=== PATIENT | female | born 1990 | race African-American/Black ===

== ENCOUNTER 2017-02-23 17:01 | Emergency (ER) | payer OTHER ==
[~2017-02-23] VITALS: Ht 162.6 cm; Wt 81.6 kg
[2017-02-23] MEDS ORDERED: TYLE325T5 PO (17:21)
[2017-02-23] MEDS ORDERED: FLUC10TA PO (17:21)
[2017-02-23] MEDS ORDERED: IBUP-1114 PO (17:21)
[2017-02-23 18:09] LABS: BASO % 0.4 % (0.0-1.0); EOS # 0.1 K/mm3 (0.0-0.50); EOS % 0.6 % (0.0-3.0); LARGE UNSTAINED CELL # 0.1 K/mm3 (0.0-0.4); LARGE UNSTAINED CELL % 0.8 % (0.0-4.0); LYMPH # 2.3 K/mm3 (1.5-6.5); LYMPH % 19.9 % (24.0-44.0); MEAN CORPUSCULAR HEMOGLOBIN 29.1 pg (27.0-33.0); MEAN CORPUSCULAR HGB CONC 33.9 g/dl (32.0-36.5); MEAN CORPUSCULAR VOLUME 85.8 fl (80.0-96.0); MONO # 0.3 K/mm3 (0.0-0.8); MONO % 2.9 % (0.0-5.0); NEUTROPHILS # 8.5 K/mm3 (1.8-7.7); NEUTROPHILS % 75.3 % (36.0-66.0); PLATELET COUNT, AUTOMATED 354 k/mm3 (150-450); RED CELL DISTRIBUTION WIDTH 13.5 % (11.5-14.5); WHITE BLOOD COUNT 11.3 K/mm3 (4.0-10.0)
[2017-02-23 18:36] LABS: CONTROL LINE HCG INT CTR LINE PRESENT
[2017-02-23 18:43] LABS: ALBUMIN 3.9 GM/DL (3.2-5.2); ALBUMIN/GLOBULIN RATIO 0.93 (1.00-1.93); ALKALINE PHOSPHATASE 107 U/L (45-117); ALT/SGPT 22 U/L (12-78); ANION GAP 6 MEQ/L (8-16); AST/SGOT 15 U/L (15-37); BILIRUBIN,DIRECT 0.1 MG/DL (0.0-0.2); BILIRUBIN,TOTAL 0.5 MG/DL (0.2-1.0); BLOOD UREA NITROGEN 8 MG/DL (7-18); CALCIUM LEVEL 9.6 MG/DL (8.5-10.1); CARBON DIOXIDE LEVEL 28 MEQ/L (21-32); CHLORIDE LEVEL 104 MEQ/L (98-107); CREATININE FOR GFR 0.73 MG/DL (0.55-1.02); GLOMERULAR FILTRATION RATE > 60.0 (>60); GLUCOSE, FASTING 91 MG/DL (70-105); POTASSIUM SERUM 3.9 MEQ/L (3.5-5.1); SODIUM LEVEL 138 MEQ/L (136-145); TOTAL PROTEIN 8.1 GM/DL (6.4-8.2)
--- NOTE | 2017-02-23 19:00 | REPUSA ---
CLINICAL HISTORY: Pelvic pain. TECHNIQUE: Realtime sonographic images were obtained in multiple projections. FINDINGS: The uterus is anteverted measuring 9.1 x 4.5 x 5.5 cm. The endometrial echo pattern is within normal limits measuring 9.6 mm. There is free fluid in the posterior cul-de-sac. The right ovary measures 2.8 x 1.9 x 1.6 cm and the left ovary measures 3.2 x 2.5 x 2.7 cm. There is a hemorrhagic left ovarian cyst measuring 1.8 x 1.7 x 1.9 cm. There is no evidence for abnormal vascularity. IMPRESSION: 1. Hemorrhagic left ovarian cyst. 2. Free fluid in the posterior cul-de-sac. Thank you for your kind referral of this patient. We appreciate the opportunity to participate in thi s patient's care.
[2017-02-23] MEDS ORDERED: PHENAZOPYRIDINE 100 MG TAB PO ONE (19:15)
[2017-02-23] MEDS ORDERED: CIPROFLOXACIN 500 MG TAB PO ONE (19:15)
[2017-02-23] MEDS ORDERED: CIPR500T89 PO (19:21)
[2017-02-23] MEDS ORDERED: PYRI200T5 PO (19:21)
[2017-02-23 19:41] VITALS: BP 142/70
== END 2017-02-23 19:42 | disposition home or self-care (01) ==
LOC: M ED 19:17
DX: N30.00 Acute cystitis without hematuria (principal); N83.292 Other ovarian cyst, left side; Z91.040 Latex allergy status

== ENCOUNTER 2017-04-25 19:59 | Emergency (ER) | payer OTHER ==
[~2017-04-25] VITALS: Ht 162.6 cm; Wt 95.0 kg
[~2017-04-25 19:59] MED LIST: CIPR-249 PO; FLUC10TA PO; IBUP-1114 PO; PYRI1TAB5 PO; TYLE325T5 PO
[2017-04-25 20:01] VITALS: BP 122/63
[2017-04-25] MEDS ORDERED: AMOX500C PO (21:05)
[2017-04-25] MEDS ORDERED: ACETAMINOPHEN TAB 650MG DOSE (2X325MG) PO ONE (21:15)
[2017-04-25] MEDS ORDERED: AMOXICILLIN 500 MG CAP PO ONE (21:15)
== END 2017-04-25 21:20 | disposition home or self-care (01) ==
LOC: M ED 21:19
DX: H66.001 Acute suppurative otitis media without spontaneous rupture of ear drum, right ear (principal); M54.2 Cervicalgia

== ENCOUNTER 2017-05-05 11:59 | Emergency (ER) | payer OTHER ==
[~2017-05-05] VITALS: Ht 162.6 cm; Wt 93.3 kg
[~2017-05-05 11:59] MED LIST changes: +AMOX500C PO
[2017-05-05 12:54] LABS: BASO % 0.4 % (0.0-1.0); EOS # 0.1 K/mm3 (0.0-0.50); EOS % 0.7 % (0.0-3.0); LARGE UNSTAINED CELL # 0.1 K/mm3 (0.0-0.4); LARGE UNSTAINED CELL % 0.9 % (0.0-4.0); LYMPH # 2.5 K/mm3 (1.5-6.5); LYMPH % 23.6 % (24.0-44.0); MEAN CORPUSCULAR HEMOGLOBIN 29.5 pg (27.0-33.0); MEAN CORPUSCULAR VOLUME 86.9 fl (80.0-96.0); MONO # 0.3 K/mm3 (0.0-0.8); MONO % 2.9 % (0.0-5.0); NEUTROPHILS # 7.4 K/mm3 (1.8-7.7); NEUTROPHILS % 71.5 % (36.0-66.0); PLATELET COUNT, AUTOMATED 312 k/mm3 (150-450); RED CELL DISTRIBUTION WIDTH 13.1 % (11.5-14.5); WHITE BLOOD COUNT 10.4 K/mm3 (4.0-10.0)
[2017-05-05 13:41] VITALS: BP 111/74
== END 2017-05-05 13:42 | disposition home or self-care (01) ==
LOC: M ED 11:59
DX: O20.0 Threatened abortion (principal); O99.211 Obesity complicating pregnancy, first trimester; O99.331 Smoking (tobacco) complicating pregnancy, first trimester; F17.210 Nicotine dependence, cigarettes, uncomplicated; Z91.040 Latex allergy status; Z3A.00 Weeks of gestation of pregnancy not specified

== ENCOUNTER 2017-06-07 14:44 | Emergency (ER) | payer OTHER ==
[~2017-06-07] VITALS: Ht 162.6 cm; Wt 94.5 kg
[2017-06-07] MEDS ORDERED: ACET50TA PO (15:00)
[2017-06-07 17:06] VITALS: BP 148/86
== END 2017-06-07 17:07 | disposition home or self-care (01) ==
LOC: M ED 14:44
DX: R51 Headache (principal); Z32.01 Encounter for pregnancy test, result positive; Z91.040 Latex allergy status

== ENCOUNTER 2017-09-10 17:39 | Emergency (ER) | payer OTHER ==
[~2017-09-10] VITALS: Ht 162.6 cm; Wt 91.8 kg
[~2017-09-10 17:39] MED LIST changes: +ACET50TA PO
[2017-09-10 17:40] VITALS: BP 141/76
[2017-09-10] MEDS ORDERED: AMOXICILLIN 500 MG CAP PO ONE (18:15)
[2017-09-10] MEDS ORDERED: AMOX875T PO (18:15)
== END 2017-09-10 18:26 | disposition home or self-care (01) ==
LOC: M ED 17:39
DX: H66.012 Acute suppurative otitis media with spontaneous rupture of ear drum, left ear (principal)

== ENCOUNTER 2017-12-18 20:36 | Emergency (ER) | payer OTHER ==
[2017-12-18] MEDS: NS 1,000 ML IV (23:01)
[2017-12-18 23:04] LABS: HEMATOCRIT 36.8 % (36.0-47.0); HEMOGLOBIN 12.5 g/dl (12.0-16.0); MEAN CORPUSCULAR HEMOGLOBIN 28.6 pg (27.0-33.0); MEAN CORPUSCULAR VOLUME 84.2 fl (80.0-96.0); PLATELET COUNT, AUTOMATED 278 10^3/uL (150-450); RED BLOOD COUNT 4.37 10^6/uL (4.00-5.40); RED CELL DISTRIBUTION WIDTH 14.1 % (11.5-14.5); WHITE BLOOD COUNT 15.5 10^3/uL (4.0-10.0)
[2017-12-18] MEDS: ACETAMINOPHEN 325 MG TAB PO (23:05)
[2017-12-18 23:06] LABS: CONTROL LINE UCG INT CTR LINE PRESENT; URINE PREG TEST POSITIVE (NEGATIVE)
[2017-12-18 23:40] LABS: HCG, SERUM QUANTITATIVE 2642 MIU/ML
[2017-12-19 00:37] LABS: KETONE, URINE AUTO RFX NEGATIVE (NEGATIVE); LEUKOCYTE ESTERASE UR AUTO RFX NEGATIVE (NEGATIVE); MUCUS, URINE RFX SMALL (NEGATIVE); NITRITE, URINE AUTO RFX NEGATIVE (NEGATIVE); RBC, URINE AUTO RFX 1 /HPF (0-3); SPECIFIC GRAVITY UR AUTO RFX 1.021 (1.002-1.035); SQUAM EPITHELIAL CELL UR AURFX 2 /HPF (0-6); WBC, URINE AUTO RFX 0 /HPF (0-3)
== END 2017-12-19 01:31 | disposition home or self-care (01) ==
LOC: M ED 12-19 01:31
DX: O26.891 Other specified pregnancy related conditions, first trimester (principal); R10.2 Pelvic and perineal pain; Z3A.01 Less than 8 weeks gestation of pregnancy
CPT/HCPCS: 76801

== ENCOUNTER 2017-12-28 04:27 | Emergency (ER) | payer OTHER ==
[2017-12-28] MEDS: ONDANSETRON 4MG/2ML VIAL (J2405) IV (06:15)
[2017-12-28] MEDS: NS 1,000 ML IV (06:15)
[2017-12-28] MEDS: ACETAMINOPHEN 325 MG TAB PO (07:15)
[2017-12-28 07:17] LABS: KETONE, URINE AUTO RFX NEGATIVE (NEGATIVE); LEUKOCYTE ESTERASE UR AUTO RFX NEGATIVE (NEGATIVE); MUCUS, URINE RFX SMALL (NEGATIVE); NITRITE, URINE AUTO RFX NEGATIVE (NEGATIVE); RBC, URINE AUTO RFX 1 /HPF (0-3); SPECIFIC GRAVITY UR AUTO RFX 1.017 (1.002-1.035); SQUAM EPITHELIAL CELL UR AURFX 2 /HPF (0-6); WBC, URINE AUTO RFX 0 /HPF (0-3)
[2017-12-28 07:53] LABS: HCG, SERUM QUANTITATIVE 28764 MIU/ML
== END 2017-12-28 08:11 | disposition home or self-care (01) ==
LOC: M ED 04:27
DX: O21.9 Vomiting of pregnancy, unspecified (principal); O99.89 Other specified diseases and conditions complicating pregnancy, childbirth and the puerperium; R51 Headache; Z3A.00 Weeks of gestation of pregnancy not specified; Z91.040 Latex allergy status
CPT/HCPCS: J2405

== ENCOUNTER 2018-02-06 10:12 | Emergency (ER) | payer OTHER ==
[2018-02-06] MEDS: diphenhydrAMINE INJ 50MG/ML VIAL (J1200) IV (11:41)
[2018-02-06] MEDS: METOCLOPRAMIDE INJ 10MG/2ML VIAL (J2765) IV (11:41)
[2018-02-06] MEDS: MORPHINE 4 MG/ML 1ML VIAL/SYRINGE (J2270) IV (11:41)
== END 2018-02-06 12:46 | disposition home or self-care (01) ==
LOC: M ED 10:12
DX: G43.909 Migraine, unspecified, not intractable, without status migrainosus (principal); Z91.040 Latex allergy status
CPT/HCPCS: J2270

== ENCOUNTER → 2018-02-09 | Outpatient (REF) | payer OTHER ==
[2018-02-09 22:03] LABS: CHLAMYDIA DNA AMPLIFICATION NEGATIVE (NEGATIVE); GC DNA AMPLIFICATION NEGATIVE (NEGATIVE)
== END ==
LOC: M SFHCLERA 18:18
DX: R30.0 Dysuria (principal)
CPT/HCPCS: 87086

== ENCOUNTER 2018-05-11 19:49 | Outpatient (CLI) | payer OTHER ==
[2018-05-11] MEDS: LR 1,000 ML IV (21:13)
[2018-05-11] MEDS: ACETAMINOPHEN 500 MG TAB PO (21:14)
[2018-05-11 21:17] LABS: HEMATOCRIT 35.6 % (36.0-47.0); HEMOGLOBIN 12.2 g/dl (12.0-15.5); MEAN CORPUSCULAR HEMOGLOBIN 29.8 pg (27.0-33.0); MEAN CORPUSCULAR HGB CONC 34.3 g/dl (32.0-36.5); PLATELET COUNT, AUTOMATED 252 10^3/uL (150-450); RED BLOOD COUNT 4.09 10^6/uL (4.00-5.40); RED CELL DISTRIBUTION WIDTH 13.9 % (11.5-14.5); WHITE BLOOD COUNT 17.8 10^3/uL (4.0-10.0)
[2018-05-11 22:04] LABS: INR 0.97
[2018-05-11 22:05] LABS: FIBRINOGEN 414 MG/DL (221-452); PARTIAL THROMBOPLASTIN TIME 24.2 SECONDS (25.4-37.6)
== END 2018-05-12 02:10 | disposition home or self-care (01) ==
LOC: M LDO 19:49
DX: Z04.3 Encounter for examination and observation following other accident (principal); W10.8XXA Fall (on) (from) other stairs and steps, initial encounter; Y92.89 Other specified places as the place of occurrence of the external cause; Y93.89 Activity, other specified; Y99.8 Other external cause status; Z3A.25 25 weeks gestation of pregnancy
CPT/HCPCS: G0463

== ENCOUNTER 2018-06-05 23:25 | Outpatient (CLI) | payer OTHER | END 2018-06-06 01:30 | disposition home or self-care (01) | LOC: M LDO 23:25 | DX: O9A.313 Physical abuse complicating pregnancy, third trimester (principal); Y07.01 Husband, perpetrator of maltreatment and neglect; Z3A.29 29 weeks gestation of pregnancy | CPT/HCPCS: 59025 ==